=== PATIENT | male | born 1970 | race Caucasian/White ===

== ENCOUNTER 2023-07-22 15:40 | Emergency (ER) | payer OTHER ==
[2023-07-22 16:05] VITALS: BP 114/77; PULSE 82; RESP 18; TEMP 98.5; BMI 25.7
== END 2023-07-22 17:30 | disposition home or self-care (01) ==
LOC: FER 15:40
DX: M79.641 Pain in right hand (principal); W22.8XXA Striking against or struck by other objects, initial encounter; Y99.0 Civilian activity done for income or pay
CPT/HCPCS: 73130-TC-RT-FY; 99283-25